=== PATIENT | male | born 1990 | race Caucasian/White ===

== ENCOUNTER 2021-12-12 22:22 | Emergency (ER) | payer OTHER ==
[~2021-12-12] VITALS: Ht 190.5 cm; Wt 68.0 kg
--- NOTE | ~2021-12-12 | EMS ---
[address] [address] EMS Patient Care Report Name: AMBERCHIVO Room #: DEP ANGELA Liao#: [id number] Admission: 12/12/21 Attend Phys: Discharge: 12/13/21 Date of : [birth year] Report #: [id number] THIS REPORT FOR: //name// Report Transmitted: 12/15/2021 14:26 EMS Care Summary [place], [place]/[facility] Incident [phone] @ 12/12/2021 21:47 Incident Location [address] [place], [place] [id number] Patient CHIVO CLARK Male, 31 Years 1990 Patient Address [address] [place] [address] Patient History Anxiety, Patient Allergies No known allergies, Patient Medications Mirtazapine, Hydroxyzine, Duloxetine, Chief Complaint SEIZURE ACTIVITY Disposition Transported No Lights/[place] Dispatch Reason Convulsions/Seizure Transported To [facility] Narrative M41 DISPATCHED TO SEIZURES. [facility] [address] [place] [address] EMS Patient Care Report Name: CHIVO CLARK Room #: DEP ER Yanni#: [id number] Admission: 12/12/21 Attend Phys: Discharge: 12/13/21 Date of : [birth year] Report #: [id number] M41 AOS AND FOUND A MALE PT SITTING WITH HIS SISTER. SHE STATES THAT HE WAS IN HIS ROOM ALONE AND THEY HEARD HIM FALL. THE PT WAS ON THE FLOOR AND SHE STATES HE HAD SEIZURE LIKE ACTIVITY FOR APPROXIMATELY 20-30 SECONDS. PT HAS NO SEIZURE HX. PT ONLY HAS HX OF ANXIETY WHICH HE IS MEDICATED FOR. PT ANSWERS QUESTIONS BUT IS CONFUSED AND SLOW TO RESPOND. PT STATES HIS ONLY COMPLAINT IS FEELING CONFUSED. PT DENIES ANY PAIN. PT WAS MOVED TO THE AMBULANCE. VITALS OBTAINED. BGA OBTAINED. IV ACCESS OBTAINED. 4 LEAD OBTAINED. FAMILY CAME TO THE AMBULANCE AND ASKED IF THEY COULD TAKE THE PT. I TOLD THEM THAT THE PT WAS CONFUSED AND THEY CANNOT SPEAK FOR HIM BECAUSE HE IS AN ADULT. I RECCOMENDED THAT HE BE TRANSPORTED TO THE HOSPITAL BY AMBULANCE. THEY AGREED. [address] [place]. EN ROUTE PT REMAINED STABLE, REPORT GIVEN TO RUBÉN FREEMAN. SIGNATURES OBTAINED. TRANSFER OF CARE TOOK PLACE. M41 IN SERVICE. 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 Initial Vitals @22:05P: 121,BP: 150/105,CO: 7,SpO2: 91, @22:11P: 166,CO: 10,SpO2: 95, @22:15P: 123,R: 18,BP: 116/78,Pain: 0/10,GCS: 14,CO: 9,SpO2: 94,Revised Trauma: 12,NH Suspected: false @22:01P: 125,R: 18,BP: 160/98,Pain: 0/10,GCS: 14,Glucose: 117,SpO2: 97,Revised Trauma: 12, Assessments @21:55MENTAL:Confused,Place Oriented,SKIN:HEENT:Head/Face: No Abnormalities,Neck/Airway: No Abnormalities,LUNG SOUNDS:General: No Abnormalities,ABDOMEN:General: No Abnormalities,PELVIS//GI:No Abnormalities,EXTREMITIES:Capillary Refill: Right Upper: < 2 Sec,Left Arm: No Abnormalities,Right Arm: No Abnormalities,Left Leg: No Abnormalities,Right Leg: No Abnormalities,PULSE:Radial: 2+ Normal,NEURO:Seizures, Impression Altered Mental Status Procedures @21:55 ALS Assessment Response: UnchangedSucceeded @22:09 IV Therapy - Saline Lock 9cc (18 ga) Site: Antecubital-Left Response: [facility] [address] [place] [address] EMS Patient Care Report Name: CHIVO CLARK Room #: DEP ANGELA Liao#: [id number] Admission: 12/12/21 Attend Phys: Discharge: 12/13/21 Date of : [birth year] Report #: [id number] UnchangedSucceeded @22:10 3-Lead ECG Response: UnchangedSucceeded Timeline 21:43,Call Received 21:43,Dispatch Notified 21:47,Dispatched 21:48,En Route 21:53,On Scene 21:55,At Patient 21:55,ALS Assessment,Response: UnchangedSucceeded, 22:01,BP: 160/98 M,PULSE: 125,RR: 18 R,SPO2: 97 Ox,ETCO2: ,B,PAIN: 0,GCS: 14, 22:05,BP: 150/105 M,PULSE: 121,RR: R,SPO2: 91 Ox,ETCO2: ,BG: ,PAIN: ,GCS: , 22:08,Depart Scene 22:09,IV Therapy - Saline Lock 9cc 18 ga Site: Antecubital-Left,Response: UnchangedSucceeded, 22:10,3-Lead ECG,Response: UnchangedSucceeded, 22:11,BP: / M,PULSE: 166,RR: R,SPO2: 95 Ox,ETCO2: ,BG: ,PAIN: ,GCS: , 22:15,BP: 116/78 M,PULSE: 123,RR: 18 R,SPO2: 94 Ox,ETCO2: ,BG: ,PAIN: 0,GCS: 14, 22:20,At Destination 22:34,Call Closed Disclaimer v1.1 Copyright 2021 [employer] This EMS Care Summary contains data elements from the applicable legal record (which may be displayed differently). It is designed to provide pertinent information for the following purposes: continuity of care, clinical quality, and state data reporting. The complete legal record is available to ED staff and administrators of the receiving hospital in [employer] Patient Tracker. All data is provided "as is."
[2021-12-12 22:41] LABS: ABSOLUTE NEUTROPHILS 4.8 thou/uL (1.4-8.2); BASOPHILS 0.6 % (0.0-2.0); EOSINOPHILS 1.8 % (0.0-3.0); HEMATOCRIT 42.6 % (42.0-52.0); HEMOGLOBIN 14.6 gm/dL (14.0-18.0); LYMPHOCYTES 30.3 % (24.0-44.0); MCH 31.4 pg (26.0-34.0); MCHC 34.4 g/dL (28.0-37.0); MCV 91.5 fL (80.0-100.0); MONOCYTES 6.7 % (1.0-8.0); PLATELET COUNT 275 thou/uL (150-400); POLYS 60.6 % (36.0-66.0); RBC 4.66 mil/uL (4.50-6.00); RDW 13.3 % (10.5-14.5)
[2021-12-12 22:51] LABS: CALCIUM 8.8 mg/dL (8.5-10.1); CREATININE 1.2 mg/dL (0.7-1.3); POTASSIUM 3.5 mmol/L (3.5-5.1)
[2021-12-12 22:57] LABS: ALBUMIN 4.2 g/dL (3.4-5.0); TOTAL BILIRUBIN 0.5 mg/dL (0.2-1.0); TOTAL PROTEIN 8.1 g/dL (6.4-8.2)
[2021-12-12 23:38] LABS: MAGNESIUM 1.8 mg/dL (1.8-2.4)
[2021-12-13 00:48] LABS: URINE BILIRUBIN NEGATIVE (Negative); URINE BLOOD NEGATIVE (Negative); URINE CLARITY CLEAR; URINE COLOR YELLOW; URINE GLUCOSE-RANDOM* NEGATIVE (Negative); URINE KETONES NEGATIVE (Negative); URINE LEUKOCYTES-REFLEX NEGATIVE (Negative); URINE NITRITE-REFLEX NEGATIVE (Negative); URINE PROTEIN (DIPSTICK) NEGATIVE (Negative); URINE SPECIFIC GRAVITY 1.015 (1.005-1.035); URINE UROBILINOGEN 0.2 E.U./dl (0.2-1.0)
[2021-12-13 01:12] VITALS: BP 126/86
--- NOTE | 2021-12-13 20:36 | EKG ---
[address] [address] ELECTROCARDIOGRAM REPORT Name: CLARKCHIVO Room #: [facility] ANGELA Liao#: [id number] Admission: 12/12/21 Attend Phys: Discharge: 12/13/21 Date of : [birth year] Report #: [id number] 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1990 Requested By: Frederick Johnson Order Number: [id number] MD: Stephen Miller Measurements Intervals [place] Rate: 120 P: 244 WV: 93 QRS: 6 QRSD: 130 T: 51 QT: 437 QTc: 618 Interpretive Statements Probable sinus tachycardia Nonspecific intraventricular conduction delay Prolonged QT interval No previous ECG available for comparison Electronically Signed On 12-13-2021 20:36:19 PRODUCT MARKETING MANAGER by Stephen Miller [email or web address] <ELECTRONICALLY SIGNED> By: Stephen Miller MD, [facility] 12/13/212035 26 2227 Stephen Miller MD, FACC /EPI
== END 2021-12-13 01:13 | disposition home or self-care (01) ==
LOC: ER 22:22
PROVIDERS: Emergency Medicine
DX: R56.9 Unspecified convulsions (principal); F41.9 Anxiety disorder, unspecified